=== PATIENT | male | born 1990 | race Caucasian/White ===

== ENCOUNTER 2019-11-18 12:37 | Inpatient (IN) | payer MEDICAID ==
[2019-11-18] MEDS ORDERED: Sodium Chloride 0.9% 1,000 ML IV ONE (13:12)
[2019-11-18] MEDS ORDERED: Ketorolac 30 MG/ML SDV IVPUSH ONE (13:12)
[2019-11-18] MEDS: Sodium Chloride 0.9% 10 ML Syringe FLUSH PRN (13:20)
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
[2019-11-18] MEDS ORDERED: Potassium Chloride 10 MEQ in Premix Bag 1 BAG IV ONE (14:11)
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
[2019-11-18] MEDS ORDERED: Ondansetron 4 MG/2 ML SDV IV PRN (15:38)
[2019-11-18] MEDS ORDERED: LORazepam 2 MG/ML SDV IV SCH (15:45)
[2019-11-18] MEDS ORDERED: Sodium Chloride 0.9% 1,000 ML IV SCH (15:45)
[2019-11-18] MEDS ORDERED: Sodium Chloride 3% 50 ML IV ONE ×2 (16:00→21:21)
[2019-11-18] MEDS ORDERED: Thiamine 1,000 MG, Magnesium Sulfate 4 GM, Folic Acid 1 MG in Dextrose 5%-0.9% NaCl 1,0... IV ONE (16:00)
[2019-11-18] MEDS ORDERED: MAGNESIUM SULFATE IV ONE (16:15)
[2019-11-18] MEDS ORDERED: FOLIC ACID IV ONE (16:15)
[2019-11-18] MEDS ORDERED: [UNRECOGNIZED DRUG - OTHER] IV ONE (16:15)
[2019-11-18] MEDS ORDERED: THIAMINE IV ONE (16:15)
--- NOTE | 2019-11-18 18:59 | PCM.PRNOTE ---
- Free Text/Narrative Note: Central Venous Catheter Placement Date: 11/18/19 Time: 18:15-18:29 Indication: Use of caustic IV medications, 3% NS Attending: Princess Hartley MD A time-out was completed verifying correct patient, procedure, site, positioning, and special equipment if applicable. The patient was placed in a dependent position appropriate for central line placement based on the vein to becannulated. The patients right neck was prepped and draped in sterile fashion. 1%Lidocainewas used to anesthetize the surrounding skin area. A triple lumen 7-FrenchCordiscatheter was introduced into the the right i nternal jugular vein using the Seldingertechnique and under ultrasound guidance. The catheter was threaded smoothly over the guide wire and appropriate blood return was obtained. Each lumen of the catheter was evacuated of air and flushed with sterile saline. The catheter was then sutured in place to the skin and a sterile dressing applied. Perfusion to the extremity distal to the point of catheter insertion was checked and found to be adequate. Estimated Blood Loss: 5mL The patient tolerated the procedure well and there were no complications.
--- NOTE | 2019-11-18 19:01 | CR ---
Chest: Portable view of the chest was obtained. Comparison: No prior chest imaging is available. Right jugular line is seen. Tip lies within the superior vena cava near the right atrial junction. Heart size and mediastinum are normal. Lungs are clear with no acute parenchymal change. No pneumothorax is seen. Old healed right clavicle fracture is noted. Impression: 1. Right jugular line as described above. No pneumothorax. 2. Old healed right clavicle fracture. Diagnostic code #2 This report was dictated in MDT
[2019-11-18] MEDS ORDERED: Alum Hydrox/Mag Hydrox/Simeth 30 ML, Lidocaine 2% 15 ML PO ONE ×2 (20:28)
[2019-11-18] MEDS ORDERED: Sodium Chloride 3% 500 ML ONE (21:18)
[2019-11-18] MEDS ORDERED: SODIUM CHLORIDE 0.9% IV ONE (22:53)
[2019-11-18] MEDS ORDERED: DESMOPRESSIN IV ONE (22:53)
[2019-11-18] MEDS ORDERED: DEXTROSE 5% IV ONE (23:00)
[2019-11-18] MEDS ORDERED: WATER IV ONE (23:00)
[2019-11-18] MEDS: Desmopressin 4 MCG/1 ML Amp IV SCH (23:30)
[2019-11-19] MEDS: Sodium Chloride 0.9% 10 ML Syringe FLUSH PRN (00:08)
[2019-11-19] MEDS ORDERED: Gabapentin 600 MG Tab PO ONE (00:10)
[2019-11-19] MEDS: Dextrose 5% in Water 1,000 ML IV SCH ×2 (01:40→02:47)
[2019-11-19] MEDS: Potassium Chloride 10 MEQ in Premix Bag 1 BAG IV SCH ×4 (03:35→06:46)
[2019-11-19] MEDS: Desmopressin 4 MCG/1 ML Amp IV SCH (05:57)
[2019-11-19] MEDS ORDERED: WATER IV SCH (07:00)
[2019-11-19] MEDS ORDERED: DEXTROSE 5% IV SCH (07:00)
[2019-11-19] MEDS ORDERED: Potassium Phosphates 30 MMOLE in Sodium Chloride 0.9% 500 ML IV SCH (08:30)
[2019-11-19] MEDS: Cholecalciferol (Vitamin D3) 5,000 UNIT Tab PO SCH (09:23)
[2019-11-19] MEDS ORDERED: Potassium Chloride 20 MEQ Tab.ER PO ONE (10:00)
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
[2019-11-19] MEDS ORDERED: SODIUM CHLORIDE 3% IV ONE (11:30)
--- NOTE | 2019-11-19 12:15 | PCM.PN ---
- General Info Date of Service: 11/19/19 - Review of Systems Systems Review Comment:: The patient denies any nausea or vomiting. Reported he has been able to swallow without any regurgitation, but reported some heart burn with meds. States appetite still low but was able tolerate about 50% of breakfast. Denies numbness or tingling. - Patient Data Vitals - Most Recent: Last Vital Signs Temp 97.7 F 11/19/19 08:00 Pulse 80 11/19/19 08:00 Resp 18 11/19/19 08:00 BP 95/62 11/19/19 08:00 Pulse Ox 99 11/19/19 08:00 Orthostatic Blood Pressure [ 113/63 Standing] Orthostatic Blood Pressure [ 100/59 Supine] Weight - Most Recent: 230 lb 6.4 oz I&O - Last 24 Hours: Intake & Output 11/18/19 11/19/19 11/19/19 22:59 06:59 14:59 Intake Total 3080 Output Total 1475 1500 300 Balance -1475 1580 -300 - Exam General: Alert, Oriented HEENT: Pupils Equal, Pupils Reactive, Mucous Membr. Moist/[place] Neck: Supple Lungs: Clear to Auscultation, Normal Respiratory Effort Cardiovascular: Regular Rate, Regular Rhythm GI/Abdominal Exam: Normal Bowel Sounds, Soft, Non-Tender, No Distention, No Abnormal Bruit Back Exam: Normal Inspection, Full Range of Motion Extremities: Normal Inspection, No Pedal Edema, Other (Noted with BKA on left extremity. ) Skin: Warm, Dry, Intact Neurological: No New Focal Deficit Psy/Mental Status: Alert, Normal Affect, Normal Mood Sepsis Event Note - Evaluation Sepsis Screening Result: No Definite Risk - Focused Exam Vital Signs: Vital Signs Temp Pulse Resp BP Pulse Ox 11/19/19 08:00 97.7 F 80 18 95/62 99 11/19/19 04:00 97.2 F 16 98/61 100 11/19/19 02:18 14 92/55 L 96 Date Exam was Performed: 11/19/19 Time Exam was Performed: 14:05 - Problem List & Annotations (1) Vitamin D deficiency SNOMED Code(s): 66653436 Code(s): E55.9 - VITAMIN D DEFICIENCY, UNSPECIFIED Status: Acute Current Visit: Yes (2) Hypophosphatemia SNOMED Code(s): 6648340 Code(s): E83.39 - OTHER DISORDERS OF PHOSPHORUS METABOLISM Status: Acute Current Visit: Yes - Problem List Review Problem List Initiated/Reviewed/Updated: Yes - Assessment Assessment:: 11/18/19 Drinking binge over the weekend followed by intractable nausea and vomiting--> stopped solid oral intake on Friday, has been drinking only water since then Complaining of a dyne aphasia with 1 or 2 episodes of streaks of blood Daily drinker for the past months, previous social drinker Drinks half of a 2 L bottle of vodka a day "Try to wean myself off this time" Last drink was Friday night Is never gone through withdrawal Labs on admission: Sodium 109, potassium 2.7, chloride 72, CO2 26, GFR above 60, glucose 109 No prior sodium problems Takes combination hypertensive likely with hydrochlorothiazide, pending confirmation Blood pressure borderline on admission 104/49, upon my evaluation 97/48 (59) Prior marijuana user, last use more than 3 years ago 11/19/19 Vital signs Temp 97.2 HR 80 BP 98/61~92/55 with MAP (67-73) Sat02 100 on RA WBC 4.28 RBC 3.42 Hbg 10.8/31.3 Na b/w 119~121 Potassium 2.6 phos 1.3 from 2.1 yesterday Mg 2.3 serum osmolality Vit D: Low 12.4 Iron:43,TIBC,156, transferrin 125 No obvious signs of withdrawal noted. No tremors, patient is able to maintain eye contact. strength in tact. No blood in sputum today. Patient refused placement for alcohol treatment - Plan Plan:: Sever Hyponatremia 3% NS, Desmopressin, and D5 stopped. Keep patient on NS. Goal today to correct NS 6-8mEQ/day. Continue NA checks q1hr. Encourage mild moderate water intake. Sever hypokalemia: Will replace potassium. Patient will be on telemetry to make sure no QT prolongation. Alcohol abuse: No withdrawals Continue PRN Ativan start p.o multi vitamin, thiamine and folic acid. Hypotension: MAP normal, Continue IV fluids with NS. Hold vasodilators. Normocytic normochromic anemia. HH stable, No signs bleeding. start ferrous sulfate. reticulocyte count and peripheral blood smear ordered will f/u. Hypophosphatemia Will replace phosphorous with K-phose. Vitamin D deficiency: Patient started on Vit D daily. Neuropathy Continue Neurontin. Cannabinoids use: Advised patient for cessation Odynophagia Resolved. continue PRN GI cocktail now and Pre-meal sucralfate Heartburn -Pre-meal sucralfate Consider PPI's if persist. PROPHYLAXIS DVTambulation GInot indicated CODE STATUS: FULL CODE Prognosis: Guarded DISPOSITION: Patient will remain in ICU, continue CIWA protocol, monitor and replace electrolytes closely.
[2019-11-19] MEDS: Folic Acid 1 MG Tab PO SCH (12:24)
[2019-11-19] MEDS: Thiamine 100 MG Tab PO SCH (12:24)
[2019-11-19] MEDS: Gabapentin 600 MG Tab PO SCH ×2 (12:24→20:14)
[2019-11-19] MEDS ORDERED: Morphine 2 MG/ML SYRINGE IVPUSH PRN (12:47)
[2019-11-19] MEDS ORDERED: Potassium Phosphates 60 MMOLE in Sodium Chloride 0.9% 1,000 ML IV ONE (15:00)
[2019-11-19] MEDS ORDERED: Sodium Chloride 3% 50 ML IV ONE (17:45)
[2019-11-19] MEDS ORDERED: Gabapentin 600 MG Tab PO SCH (21:00)
[2019-11-20] MEDS ORDERED: Ferrous Sulfate 324 MG Tab.EC PO SCH (07:00)
[2019-11-20] MEDS: Ferrous Sulfate 324 MG Tab.EC PO SCH (08:07)
[2019-11-20] MEDS: Cholecalciferol (Vitamin D3) 5,000 UNIT Tab PO SCH (08:08)
[2019-11-20] MEDS: Folic Acid 1 MG Tab PO SCH (08:08)
[2019-11-20] MEDS: Thiamine 100 MG Tab PO SCH (08:08)
--- NOTE | 2019-11-20 08:37 | PCM.PN ---
- General Info Date of Service: 11/20/19 Subjective Update: Slept OK Tolerating diet No neurologic symptoms No other complaints - Patient Data Vitals - Most Recent: Last Vital Signs Temp 97.3 F 11/20/19 04:00 Pulse 78 11/20/19 04:00 Resp 13 11/20/19 04:00 BP 99/63 11/20/19 04:00 Pulse Ox 100 11/20/19 04:00 Weight - Most Recent: 104.961 kg - Exam General: Alert, Oriented, Cooperative, No Acute Distress HEENT: Pupils Equal, Pupils Reactive, EOMI, Mucous Membr. Moist/[place] Neck: Supple Lungs: Normal Respiratory Effort, Decreased Breath Sounds. No: Crackles, Rales, Rhonchi, Rub, Stridor, Wheezing Cardiovascular: Regular Rate, Regular Rhythm. No: Murmurs, Gallops, Rubs GI/Abdominal Exam: Normal Bowel Sounds, Soft, Non-Tender, Distended. No: Guarding, Rigid, Rebound Back Exam: Normal Inspection Extremities: Other (LLE with BKA, RLE with no pedal edema, preserved distal pulses, capillary refill normal) Peripheral Pulses: 2+: Radial (L), Radial (R), Dorsalis Pedis (R) Neurological: No New Focal Deficit Sepsis Event Note - Evaluation Sepsis Screening Result: No Definite Risk - Problem List & Annotations (1) Dehydration with hyponatremia SNOMED Code(s): 56562957 Code(s): E86.0 - DEHYDRATION; E87.1 - HYPO-OSMOLALITY AND HYPONATREMIA Status: Acute Current Visit: Yes (2) Hypertension SNOMED Code(s): 02500517 Code(s): I10 - ESSENTIAL (PRIMARY) HYPERTENSION Status: Acute Current Visit: Yes (3) Below-knee amputation of left lower extremity SNOMED Code(s): 830397078 Code(s): S88.112A - COMPLETE TRAUM AMP AT LEV BETW KN AND ANKL, L LOW LEG, INIT Status: Acute Current Visit: Yes (4) Odynophagia SNOMED Code(s): 47937653 Code(s): R13.10 - DYSPHAGIA, UNSPECIFIED Status: Acute Current Visit: Yes (5) Inadequate oral intake SNOMED Code(s): 875033340674235 Code(s): R63.8 - OTHER SYMPTOMS AND SIGNS CONCERNING FOOD AND FLUID INTAKE Status: Acute Current Visit: Yes (6) Polydipsia SNOMED Code(s): 41638509 Code(s): R63.1 - POLYDIPSIA Status: Acute Current Visit: Yes (7) Hypotension SNOMED Code(s): 66546994 Code(s): I95.9 - HYPOTENSION, UNSPECIFIED Status: Acute Current Visit: Yes (8) Normocytic normochromic anemia SNOMED Code(s): 55764082 Code(s): D64.9 - ANEMIA, UNSPECIFIED Status: Acute Current Visit: Yes (9) Alcohol abuse SNOMED Code(s): 63783938 Code(s): F10.10 - ALCOHOL ABUSE, UNCOMPLICATED Status: Acute Current Visit: Yes (10) Hypokalemia SNOMED Code(s): 47149823 Code(s): E87.6 - HYPOKALEMIA Status: Acute Current Visit: Yes (11) Hypophosphatemia SNOMED Code(s): 9881434 Code(s): E83.39 - OTHER DISORDERS OF PHOSPHORUS METABOLISM Status: Acute Current Visit: Yes (12) Heartburn SNOMED Code(s): 06519884 Code(s): R12 - HEARTBURN Status: Acute Current Visit: Yes (13) Hyponatremia SNOMED Code(s): 39376360 Code(s): E87.1 - HYPO-OSMOLALITY AND HYPONATREMIA Status: Acute Current Visit: Yes (14) Vitamin D deficiency SNOMED Code(s): 20941571 Code(s): E55.9 - VITAMIN D DEFICIENCY, UNSPECIFIED Status: Acute Current Visit: Yes - Problem List Review Problem List Initiated/Reviewed/Updated: Yes - Assessment Assessment:: 11/18/19 Drinking binge over the weekend followed by intractable nausea and vomiting--> stopped solid oral intake on Friday, has been drinking only water since then Complaining of a dyne aphasia with 1 or 2 episodes of streaks of blood Daily drinker for the past months, previous social drinker Drinks half of a 2 L bottle of vodka a day "Try to wean myself off this time" Last drink was Friday night Is never gone through withdrawal Labs on admission: Sodium 109, potassium 2.7, chloride 72, CO2 26, GFR above 60, glucose 109 No prior sodium problems Takes combination hypertensive likely with hydrochlorothiazide, pending confirmation Blood pressure borderline on admission 104/49, upon my evaluation 97/48 (59) Prior marijuana user, last use more than 3 years ago PLAN 3% NS as indicated, starting with 50mL bolus Random urine sodium, creatinine and osmolarity Serum osmolarity Urine drug screen Na every hour for now Replace potassium with 60 mEq IV of KCl GI cocktail now and PRN Iron panel, folic acid, B12, reticulocyte count and peripheral blood smear ordered Goal hemoglobin greater than 7 CIWA protocol in ICU Banana bag #1 today Start thiamine and folic acid supplementation daily Cessation counseling Goal sodium in the next 24 hours is between 115 and 117 11/19/19 Sodium was corrected too quickly overnight for which patient required 2 boluses of D5 water and was started on desmopressin VS trend BP 99-104/49-69 Tmax 96.4 HR 76-80 SatO2 > 95% Lab results Hb down from 12.8 to 10.8 Na up from 109 to 120 K up from 2.6 to 3 PO4 up from 1.4 to 2.6 M down from 2.8 to 2 Iron 125 UDS positive for THC PLAN Replace electrolytes with KPO4 90mMol and KCl 40mEq PO Discontinue desmopressin Start folic acid and thiamine p.o. 11/20/19 Sodium up from 120 229 Phosphate down from 3.1-2 Vital signs trend Blood pressure: 65874/50 569 T-max: 98.1 HR: 8086 SatO2 > 99% Urine output 2975 Balance in the past 24 hours of 105 - Plan Plan:: Volume depletion with hyponatremia Inadequate oral intake of food 3% NS, Desmopressin, and D5 stopped. Keep patient on NS. Goal today to correct NS 6-8mEQ/day. Continue NA checks q1hr. Encourage mild moderate water intake. Hypokalemia Hypophosphatemia Replace IV Odynophagia 2/2 intractable vomiting Sucralfate PRN GI cocktail Polydipsia 2/2 Alcohol abuse Marijuana use Cessation counseling CIWAA protocol PRN Ativan Continue thiamine and folic acid Vitamin D deficiency Start repletion Normocytic normochromic anemia Work up Left BKA Neuropathy Continue Gabapentin Hypotension, resolved PROPHYLAXIS DVTambulation GInot indicated CODE STATUS: FULL CODE DISPOSITION: Patient will remain in ICU with close Na and electrolyte monitorization.
[2019-11-20] MEDS: Gabapentin 600 MG Tab PO SCH ×2 (11:47→20:46)
[2019-11-21] MEDS: Folic Acid 1 MG Tab PO SCH (08:50)
[2019-11-21] MEDS: Thiamine 100 MG Tab PO SCH (08:50)
[2019-11-21] MEDS: Cholecalciferol (Vitamin D3) 5,000 UNIT Tab PO SCH (08:50)
[2019-11-21] MEDS: Ferrous Sulfate 324 MG Tab.EC PO SCH (08:50)
--- NOTE | 2019-11-21 11:10 | PCM.PN ---
- General Info Date of Service: 11/21/19 Subjective Update: Slept okay Is tolerating diet No withdrawal symptoms No complaints Bowel movement today - Patient Data Vitals - Most Recent: Last Vital Signs Temp 98.4 F 11/21/19 04:00 Pulse 78 11/21/19 04:00 Resp 15 11/21/19 04:00 BP 108/72 11/21/19 04:00 Pulse Ox 100 11/21/19 04:00 Weight - Most Recent: 104.372 kg - Exam General: Alert, Oriented, Cooperative, No Acute Distress HEENT: Pupils Equal, Pupils Reactive, EOMI, Mucous Membr. Moist/[place] Neck: Supple. No: Lymphadenopathy Lungs: Clear to Auscultation, Normal Respiratory Effort. No: Decreased Breath Sounds, Crackles, Rales, Rhonchi, Rub, Stridor, Wheezing Cardiovascular: Regular Rate, Regular Rhythm. No: Murmurs, Gallops, Rubs GI/Abdominal Exam: Normal Bowel Sounds, Soft, Non-Tender, Distended. No: Guarding, Rigid, Rebound Skin: Warm, Dry Neurological: No New Focal Deficit Psy/Mental Status: Normal Affect, Normal Mood Sepsis Event Note - Evaluation Sepsis Screening Result: No Definite Risk - Problem List & Annotations (1) Dehydration with hyponatremia SNOMED Code(s): 85319927 Code(s): E86.0 - DEHYDRATION; E87.1 - HYPO-OSMOLALITY AND HYPONATREMIA Status: Acute Current Visit: Yes (2) Hypertension SNOMED Code(s): 45609376 Code(s): I10 - ESSENTIAL (PRIMARY) HYPERTENSION Status: Acute Current Visit: Yes (3) Below-knee amputation of left lower extremity SNOMED Code(s): 367533390 Code(s): S88.112A - COMPLETE TRAUM AMP AT LEV BETW KN AND ANKL, L LOW LEG, INIT Status: Acute Current Visit: Yes (4) Odynophagia SNOMED Code(s): 55349651 Code(s): R13.10 - DYSPHAGIA, UNSPECIFIED Status: Acute Current Visit: Yes (5) Inadequate oral intake SNOMED Code(s): 748018714044564 Code(s): R63.8 - OTHER SYMPTOMS AND SIGNS CONCERNING FOOD AND FLUID INTAKE Status: Acute Current Visit: Yes (6) Polydipsia SNOMED Code(s): 31733024 Code(s): R63.1 - POLYDIPSIA Status: Acute Current Visit: Yes (7) Hypotension SNOMED Code(s): 72817535 Code(s): I95.9 - HYPOTENSION, UNSPECIFIED Status: Acute Current Visit: Yes (8) Normocytic normochromic anemia SNOMED Code(s): 38439922 Code(s): D64.9 - ANEMIA, UNSPECIFIED Status: Acute Current Visit: Yes (9) Alcohol abuse SNOMED Code(s): 51965268 Code(s): F10.10 - ALCOHOL ABUSE, UNCOMPLICATED Status: Acute Current Visit: Yes (10) Hypokalemia SNOMED Code(s): 46595365 Code(s): E87.6 - HYPOKALEMIA Status: Acute Current Visit: Yes (11) Heartburn SNOMED Code(s): 69087146 Code(s): R12 - HEARTBURN Status: Acute Current Visit: Yes (12) Hyponatremia SNOMED Code(s): 36648397 Code(s): E87.1 - HYPO-OSMOLALITY AND HYPONATREMIA Status: Acute Current Visit: Yes (13) Hypophosphatemia SNOMED Code(s): 2865071 Code(s): E83.39 - OTHER DISORDERS OF PHOSPHORUS METABOLISM Status: Acute Current Visit: Yes (14) Vitamin D deficiency SNOMED Code(s): 26518148 Code(s): E55.9 - VITAMIN D DEFICIENCY, UNSPECIFIED Status: Acute Current Visit: Yes - Problem List Review Problem List Initiated/Reviewed/Updated: Yes - Assessment Assessment:: 11/18/19 Drinking binge over the weekend followed by intractable nausea and vomiting--> stopped solid oral intake on Friday, has been drinking only water since then Complaining of a dyne aphasia with 1 or 2 episodes of streaks of blood Daily drinker for the past months, previous social drinker Drinks half of a 2 L bottle of vodka a day "Try to wean myself off this time" Last drink was Friday night Is never gone through withdrawal Labs on admission: Sodium 109, potassium 2.7, chloride 72, CO2 26, GFR above 60, glucose 109 No prior sodium problems Takes combination hypertensive likely with hydrochlorothiazide, pending confirmation Blood pressure borderline on admission 104/49, upon my evaluation 97/48 (59) Prior marijuana user, last use more than 3 years ago PLAN 3% NS as indicated, starting with 50mL bolus Random urine sodium, creatinine and osmolarity Serum osmolarity Urine drug screen Na every hour for now Replace potassium with 60 mEq IV of KCl GI cocktail now and PRN Iron panel, folic acid, B12, reticulocyte count and peripheral blood smear ord ered Goal hemoglobin greater than 7 CIWA protocol in ICU Banana bag #1 today Start thiamine and folic acid supplementation daily Cessation counseling Goal sodium in the next 24 hours is between 115 and 117 11/19/19 Sodium was corrected too quickly overnight for which patient required 2 boluses of D5 water and was started on desmopressin VS trend BP 99-104/49-69 Tmax 96.4 HR 76-80 SatO2 > 95% Lab results Hb down from 12.8 to 10.8 Na up from 109 to 120 K up from 2.6 to 3 PO4 up from 1.4 to 2.6 M down from 2.8 to 2 Iron 125 UDS positive for THC PLAN Replace electrolytes with KPO4 90mMol and KCl 40mEq PO Discontinue desmopressin Start folic acid and thiamine p.o. 11/20/19 Sodium up from 120 229 Phosphate down from 3.1-2 Vital signs trend Blood pressure: 79010/50 569 T-max: 98.1 HR: 8086 SatO2 > 99% Urine output 2975 Balance in the past 24 hours of 105 PLAN 3% NS, Desmopressin, and D5 stopped. Keep patient on NS. Goal today to correct NS 6-8mEQ/day. Continue NA checks q1hr. Encourage mild moderate water intake. Sucralfate PRN GI cocktail THC and alcohol cessation counseling CIWAA protocol PRN Ativan Continue thiamine and folic acid 11/21/19 Slept okay, is tolerating diet, no complaints Sodium up from 1 23-1 31 Phosphate from 2-2.9 Vital signs trends Map: 7785 T-max: 97.6 HR: 7388 SatO2: >95% Intake and output Urine output 3475 mL's Balance in the past 24 hours +646 Admission balance +751 - Plan Plan:: Severe hyponatremia, improved Inadequate oral intake of food Continue diet Repeat labs in AM Odynophagia 2/2 intractable vomiting Sucralfate PRN GI cocktail Polydipsia 2/2 Alcohol abuse Marijuana use Cessation counseling CIWAA protocol PRN Ativan Continue thiamine and folic acid Discuss psychiatry consult again in the AM Vitamin D deficiency Continue repletion Normocytic normochromic anemia Work up Left BKA Neuropathy Continue Gabapentin Hypotension, resolved Volume repletion, resolved Hypokalemia, resolved Hypophosphatemia, resolved PROPHYLAXIS DVTambulation GInot indicated CODE STATUS: FULL CODE DISPOSITION: Patient will remain in admitted for Na monitorization, OK to downgrade from ICU.
[2019-11-21] MEDS: Gabapentin 600 MG Tab PO SCH ×2 (12:43→22:14)
[2019-11-22] MEDS: Cholecalciferol (Vitamin D3) 5,000 UNIT Tab PO SCH (09:34)
[2019-11-22] MEDS: Folic Acid 1 MG Tab PO SCH (09:34)
[2019-11-22] MEDS: Ferrous Sulfate 324 MG Tab.EC PO SCH (09:34)
[2019-11-22] MEDS: Thiamine 100 MG Tab PO SCH (09:34)
--- NOTE | 2019-11-22 10:16 | PCM.DCSUM1 ---
Discharge Summary - Hospital Course Free Text/Narrative:: Mr. Sanchez is a 29-year-old male, who was admitted to the hospital with chief complaint of nausea and vomiting, increased generalized weakness. Patient reported about 3 days prior to admission, he went into a binge drinking, reported drinking vodka. Stated he slowly wean himself off alcohol. But on day of admission noticed he was progressively getting weaker than normal reported persistent nausea and vomiting, sore throat decided to come to the ED for evaluation. On presentation to ED, patient looked weak, dehydrated noted with severe imbalance with sodium of 109 and low potassium as well as phosphorus. Given this presentation, patient was immediately admitted to ICU, patient initially was started on 3% sodium, and later desmopressin along with D5. Patient sodium was replaced per protocol trying not to overcorrect the patient's sodium so as not to induce pontine syndrome. Fortunately no neuro deficits noted, patient sodium potassium magnesium were all replaced appropriately. Patient was also found with positive cannabinoids, counseled about cessation. Macrocytic anemia given alcohol use was also noted. Patient recommended for ferrous sulfate on discharge. Prior to discharge from the hospital, patient's sodium was back to normal, no obvious withdrawals noted throughout hospital stay. Patient was counseled about placement for alcohol but at this time the patient has completely refused states he wants to go home. On discharge, patient is recommended to continue on multivitamin thiamine folic acid. Advised to avoid alcohol. Follow-up with primary care provider within 1 week of discharge. Diagnosis: Stroke: No - Discharge Data Discharge Date: 11/22/19 Discharge Disposition: Home, Self-Care 01 Condition: Good - Referral to Home Health Primary Care Physician: Marcus Gil MD - Discharge Diagnosis/Problem(s) (1) Vitamin D deficiency SNOMED Code(s): 33706660 ICD Code: E55.9 - VITAMIN D DEFICIENCY, UNSPECIFIED Status: Acute Current Visit: Yes (2) Hypophosphatemia SNOMED Code(s): 4626743 ICD Code: E83.39 - OTHER DISORDERS OF PHOSPHORUS METABOLISM Status: Acute Current Visit: Yes (3) Alcohol abuse SNOMED Code(s): 16453281 ICD Code: F10.10 - ALCOHOL ABUSE, UNCOMPLICATED Status: Acute Current Visit: Yes (4) Below-knee amputation of left lower extremity SNOMED Code(s): 713796477 ICD Code: S88.112A - COMPLETE TRAUM AMP AT LEV BETW KN AND ANKL, L LOW LEG, INIT Status: Acute Current Visit: Yes (5) Dehydration with hyponatremia SNOMED Code(s): 74671691 ICD Code: E86.0 - DEHYDRATION; E87.1 - HYPO-OSMOLALITY AND HYPONATREMIA Status: Acute Current Visit: Yes (6) Heartburn SNOMED Code(s): 66270014 ICD Code: R12 - HEARTBURN Status: Acute Current Visit: Yes (7) Hypokalemia SNOMED Code(s): 25451780 ICD Code: E87.6 - HYPOKALEMIA Status: Acute Current Visit: Yes - Patient Instructions Diet: Regular Diet as Tolerated Fluid Restriction: drink moderate amount of water. Activity: As Tolerated Showering/Bathing: May Shower Notify Provider of: Fever (may take tylenol for fever.) Other/Special Instructions: Aviod alcohol use. - Discharge Plan *PRESCRIPTION DRUG MONITORING PROGRAM REVIEWED*: No *COPY OF PRESCRIPTION DRUG MONITORING REPORT IN PATIENT ROSEANN: No Prescriptions/Med Rec: Losartan [Cozaar] 25 mg PO DAILY #30 tab Ferrous Sulfate 324 mg PO DAILY #30 tab.ec Folic Acid 1 mg PO DAILY #30 tablet Thiamine [Vitamin B-1] 100 mg PO DAILY #30 tablet Cholecalciferol (Vitamin D3) [Vitamin D3] 5,000 unit PO DAILY #30 tablet Home Medications: Home Meds Gabapentin [Neurontin] 1,200 mg PO WITHLUNCH 11/19/19 [History] Gabapentin [Neurontin] 600 mg PO BEDTIME 11/19/19 [History] Cholecalciferol (Vitamin D3) [Vitamin D3] 5,000 unit PO DAILY #30 tablet 11/22/19 [Rx] Ferrous Sulfate 324 mg PO DAILY #30 tab.ec 11/22/19 [Rx] Folic Acid 1 mg PO DAILY #30 tablet 11/22/19 [Rx] Losartan [Cozaar] 25 mg PO DAILY #30 tab 11/22/19 [Rx] Thiamine [Vitamin B-1] 100 mg PO DAILY #30 tablet 11/22/19 [Rx] Oxygen Therapy Mode: Room Air Patient Handouts: What You Need to Know About Marijuana Use Referrals: Marcus Gil MD [Primary Care Provider] - - Discharge Summary/Plan Comment DC Time >30 min.: Yes - Patient Data Vitals - Most Recent: Last Vital Signs Temp 98.2 F 11/22/19 08:09 Pulse 78 11/22/19 08:09 Resp 20 11/22/19 08:09 BP 110/58 L 11/22/19 08:09 Pulse Ox 97 11/22/19 08:09 Orthostatic Blood Pressure [ 113/63 Standing] Orthostatic Blood Pressure [ 100/59 Supine] Weight - Most Recent: 223 lb 6.4 oz I&O - Last 24 hours: Intake & Output 11/21/19 11/22/19 11/22/19 22:59 06:59 14:59 Intake Total 0 600 Output Total 500 Balance 0 100 - Exam General: Reports: Alert, Oriented HEENT: Reports: Pupils Equal, Pupils Reactive, EOMI, Mucous Membr. Moist/[place] Neck: Reports: Supple Lungs: Reports: Clear to Auscultation, Normal Respiratory Effort Cardiovascular: Reports: Regular Rate, Regular Rhythm GI/Abdominal Exam: Normal Bowel Sounds, Soft, Non-Tender, No Organomegaly (Male) Exam: No Hernia, Normal Inspection, Normal Prostate Back Exam: Reports: Normal Inspection, Full Range of Motion Extremities: Normal Inspection, Normal Range of Motion Skin: Reports: Warm, Dry, Intact Neurological: Reports: No New Focal Deficit Psy/Mental Status: Reports: Alert, Normal Affect, Normal Mood
[2019-11-22] MEDS: Gabapentin 600 MG Tab PO SCH (12:21)
== END 2019-11-22 15:00 | disposition home or self-care (01) | DRG 641 ==
LOC: JD.ED 12:37 → JD.ICU 15:39 → JD.MS 11-21 20:14
PROVIDERS: ADMIT Internal Medicine; ATTEND Internal Medicine
PROC: 02HV33Z Insertion of Infusion Device into Superior Vena Cava, Percutaneous Approach (ICD-10-PCS; principal; 2019-11-18)
DX: E87.1 Hypo-osmolality and hyponatremia (principal); E86.0 Dehydration; E55.9 Vitamin D deficiency, unspecified; F10.10 Alcohol abuse, uncomplicated; E87.6 Hypokalemia; D53.9 Nutritional anemia, unspecified; Z79.899 Other long term (current) drug therapy; Z89.512 Acquired absence of left leg below knee; I95.9 Hypotension, unspecified; R63.1 Polydipsia; R13.10 Dysphagia, unspecified; Z20.828 Contact with and (suspected) exposure to other viral communicable diseases
CPT/HCPCS: 36415; 71045; 71045-26; 80048; 80053; 80306; 80307; 82306; 82570; 82607; 82746; 83540; 83735; 83930; 83935; 84100; 84132; 84156; 84295; 84300; 84466; 85025; 85045; 85610; 96365; 96375; 99285; 99285-25; A9270-GY; G0480; J1885; J2597; J3411; J3475; J3480; J3490; J7030; J7040; J7042; J7060; U0002

== ENCOUNTER 2020-02-12 14:10 | Emergency (ER) | payer MEDICAID ==
[2020-02-12] MEDS ORDERED: levETIRAcetam 500 MG in Sodium Chloride 0.9% 100 ML IV ONE (14:27)
[2020-02-12] MEDS ORDERED: Sodium Chloride 0.9% 1,000 ML IV SCH (14:30)
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
[2020-02-12] MEDS ORDERED: Acetaminophen 325 MG Tab PO ONE (14:34)
--- NOTE | 2020-02-14 09:42 | CT ---
"PROCEDURE INFORMATION: Exam: CT Head Without Contrast Exam date and time: 02/12/2020 3:07 PM Age: 29 years old Clinical indication: Condition or disease; Convulsions or seizures; Patient HX: New onset seizure TECHNIQUE: Imaging protocol: Computed tomography of the head without contrast. Radiation optimization: All CT scans at this facility use at least one of these dose optimization techniques: automated exposure control; mA and/or kV adjustment per patient size (includes targeted exams where dose is matched to clinical indication); or iterative reconstruction. COMPARISON: No relevant prior studies available. FINDINGS: Brain: Focal area of decreased attenuation is present within the geovani. Finding is chronic in appearance and could represent sequela of prior infarct or central pontine myelinolysis. There is no acute hemorrhage or infarct. There is no intracranial mass, mass effect, midline shift or edema. There are no abnormal extra-axial fluid collections. Cerebral ventricles: No ventriculomegaly. Bones/joints: Unremarkable. No acute fracture. Paranasal sinuses: Visualized sinuses are unremarkable. No fluid levels. Mastoid air cells: Visualized mastoid air cells are well aerated. Soft tissues: Unremarkable. IMPRESSION: 1. Chronic encephalomalacia within the geovani. Findings could be due to prior infarct or prior central pontine myelinolysis. No acute intracranial abnormality present. Thank you for allowing us to participate in the care of your patient. Dictated and Authenticated by: Rafael Lopez MD LANTZ, KYLE | Final Radiology Report CONFIDENTIALITY STATEMENT This report is intended only for use by the referring physician, and only in accordance with law. If you received this in error, call [phone]. Page 2 of 2 02/12/2020 4:30 PM Central Time ([place] & [place]) PEYMAN"
== END 2020-02-12 16:30 | disposition home or self-care (01) ==
LOC: JD.ED 14:10
DX: R56.9 Unspecified convulsions (principal); I10 Essential (primary) hypertension; Z79.899 Other long term (current) drug therapy
CPT/HCPCS: 36415; 70450; 80053; 80306; 80307; 83605; 83735; 85025; 85610; 85730; 86140; 93005; 96374; 99285; A9270; J1953; J7030

== ENCOUNTER 2020-03-07 12:27 | Emergency (ER) | payer MEDICAID ==
[2020-03-07] MEDS ORDERED: Lidocaine 1% 10 ML MDV INJECT ONE (12:39)
--- NOTE | 2020-03-07 12:58 | CR ---
PROCEDURE INFORMATION: Exam: XR Left Hand Exam date and time: 03/07/2020 12:48 PM Age: 29 years old Clinical indication: Injury or trauma; Other: Hand between hitch and trailer; Crushing; Left TECHNIQUE: Imaging protocol: XR Left hand. Views: 3 or more views. COMPARISON: No relevant prior studies available. FINDINGS: Bones/joints: Fractures of the proximal aspects of the 4th and 5th metacarpals present with moderate overlying soft tissue swelling. No other fractures. There is no evidence of joint malalignment or dislocation. Soft tissues: See "Bones/joints" finding. IMPRESSION: 1. Fractures of the proximal aspects of the 4th and 5th metacarpals present with moderate overlying soft tissue swelling. 2. No other fractures. 3. No evidence of acute dislocation. Thank you for allowing us to participate in the care of your patient. Dictated and Authenticated by: Fredrick Mckeon DO 03/07/2020 1:56 PM Central Time ([place] & [place]) [facility]
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
== END 2020-03-07 14:05 | disposition home or self-care (01) ==
LOC: JD.ED 12:27
DX: S61.412A Laceration without foreign body of left hand, initial encounter (principal); I10 Essential (primary) hypertension; R56.9 Unspecified convulsions; Z79.899 Other long term (current) drug therapy; W23.0XXA Caught, crushed, jammed, or pinched between moving objects, initial encounter
CPT/HCPCS: 12002; 73130; 99283; J2001